=== PATIENT | female | born 1965 | race Caucasian/White ===

== ENCOUNTER 2017-09-27 13:49 | Emergency (ER) | payer SELFPAY ==
--- NOTE | 2017-09-27 17:30 | RAD ---
CHEST 2 VIEWS: Date: 09/27/17 Comparison made with the 02/09/16 study. FINDINGS: The heart size is the same and unchanged. There are no signs of vascular congestion, edema, or pleura l effusion. No lobar consolidations present. There is a little haziness in the right cardiophrenic an gle near the diaphragm, but this was present before and I am not sure it is really much different. Th e bony structures showed no acute change. IMPRESSION: No definite acute finding. POS: HOME
== END 2017-09-27 14:51 | disposition home or self-care (01) ==
LOC: BURERS 13:49
DX: S46.912A Strain of unspecified muscle, fascia and tendon at shoulder and upper arm level, left arm, initial encounter (principal); E03.9 Hypothyroidism, unspecified; E78.5 Hyperlipidemia, unspecified; I10 Essential (primary) hypertension; F17.210 Nicotine dependence, cigarettes, uncomplicated; Z79.899 Other long term (current) drug therapy; W54.8XXA Other contact with dog, initial encounter
CPT/HCPCS: 71046; 93005; 94760

== ENCOUNTER 2017-10-01 08:30 | Emergency (ER) | payer SELFPAY ==
[2017-10-01] MEDS ORDERED: Benzonatate 100 MG CAP ONE (10:09)
[2017-10-01] MEDS ORDERED: Azithromycin 250 MG TAB ONE (10:09)
--- NOTE | 2017-10-01 17:52 | RAD ---
CHEST TWO VIEWS 10/01/17 There is a new right middle infiltrate that is not seen on the 09/27 study. Pneumonia, atelectasis, or both are possible. The left lung seems clear. There are no effusions. The heart size is normal. Ther e is no vascular congestion or edema. IMPRESSION: Interval appearance of a right middle lobe infiltrate. Correlate with clinical presentation and get f ollowup studies. Code T POS: HOME
== END 2017-10-01 10:15 | disposition home or self-care (01) ==
LOC: BURERS 08:30
DX: J20.9 Acute bronchitis, unspecified (principal); E03.9 Hypothyroidism, unspecified; E78.5 Hyperlipidemia, unspecified; I10 Essential (primary) hypertension; F17.210 Nicotine dependence, cigarettes, uncomplicated; Z79.899 Other long term (current) drug therapy
CPT/HCPCS: 71046

== ENCOUNTER 2021-04-22 12:26 | Emergency (ER) | payer SELFPAY ==
[2021-04-22] MEDS ORDERED: Dexamethasone 10 MG/ML VIAL ONE (12:55)
[2021-04-22] MEDS ORDERED: Aspirin Chewable 81 MG TAB ONE (12:55)
[2021-04-22] MEDS ORDERED: cefTRIAXone\\ROCEPHIN 2 GM VIAL ONE (13:44)
[2021-04-22 13:55] LABS: #Basophils 0.1 thou/uL (0.0-0.2); #Lymphocytes 0.5 thou/uL (1.20-3.40); #Monocytes 0.7 thou/uL (0.11-0.59); #Neutrophils 8.4 thou/uL (1.40-6.50); %Basophils 0.7 % (0.0-1.0); %Monocytes 7.2 % (0.0-10.0); Hemoglobin 14.3 g/dL (12.0-16.0); Mean Corpuscular HGB CONC 34.9 g/dL (32.0-36.0); Mean Corpuscular Hemoglobin 32.2 pg (27.0-31.0); Mean Corpuscular Volume 92.2 fL (78.0-98.0); Mean Platelet Volume 6.7 fL (7.4-10.4); Platelet Count 212 thou/uL (130-400); RBC Distribution Width 13.3 % (11.5-14.5); Red Blood Cell (RBC) Count 4.44 mill/uL (4.20-5.40); White Blood Cell (WBC) Count 9.7 thou/uL (4.8-10.8)
[2021-04-22] MEDS ORDERED: Azithromycin 500 MG VIAL ONE (14:04)
[2021-04-22 14:15] LABS: ALT (SGPT) 19 U/L (8-55); AST (SGOT) 25 U/L (5-34); Albumin 4.4 g/dL (3.5-5.0); Alkaline Phosphatase 67 U/L (40-110); Anion Gap 16 mmol/L (10-20); BUN (Urea Nitrogen) 12 mg/dL (9.8-20.1); Bilirubin, Total 0.9 mg/dL (0.2-1.2); Calc. Creatinine Clearance 0 mL/min (70-130); Calcium 9.3 mg/dL (7.8-10.44); Carbon Dioxide 28 mmol/L (22-29); Chloride 96 mmol/L (98-107); Globulin 3.7 g/dL (2.4-3.5); Glucose 121 mg/dL (70-105); Potassium 3.7 mmol/L (3.5-5.1); Protein, Total 8.1 g/dL (6.0-8.3); Sodium 136 mmol/L (136-145)
[2021-04-22 15:05] LABS: SARS-CoV-2 NAA Rapid Test Not Detected (NotDetected)
[2021-04-22 15:27] LABS: Bilirubin Negative (Negative); Blood, Urine Moderate (Negative); Clarity Clear (Clear); Glucose, Urine (Dipstick) Negative (Negative); Ketone, Urine 15 mg/dL (Negative); Leukocyte Negative (Negative); Nitrite Negative (Negative); Protein, Urine (Dipstick) 100 mg/dL (Neg-Trace); Specific Gravity, Urine 1.025 (1.005-1.030); Urobilinogen 0.2 mg/dL (Less than 2)
[2021-04-22 15:33] LABS: Bacteria/HPF None Seen HPF (None Seen); RBC/HPF 0-3 HPF (0-3); Squamous Epithelial 0-3 HPF (0-3); WBC/HPF 0-3 HPF (0-3)
[2021-04-22 16:45] LABS: Lactic Acid 1.7 mmol/L (0.5-2.2)
[2021-04-22] MEDS ORDERED: Lisinopril 5 MG TAB PO SCH (21:00)
[2021-04-22] MEDS ORDERED: Atorvastatin Calcium 10 MG TAB PO SCH (21:00)
== END 2021-04-22 19:49 | disposition short-term general hospital (02) ==
LOC: BURERS 12:26
DX: J18.9 Pneumonia, unspecified organism (principal); R09.02 Hypoxemia; K02.9 Dental caries, unspecified; I51.7 Cardiomegaly; I10 Essential (primary) hypertension; E03.9 Hypothyroidism, unspecified; E78.5 Hyperlipidemia, unspecified; J44.9 Chronic obstructive pulmonary disease, unspecified; F17.210 Nicotine dependence, cigarettes, uncomplicated; Z20.822 Contact with and (suspected) exposure to COVID-19; Z79.899 Other long term (current) drug therapy
CPT/HCPCS: 36415; 71045; 80053; 81003; 81015; 83605; 83880; 84484; 85025; 85379; 87040; 87804; 93005; 96365; 96367; 96375; J0456; J0696; J1100; J7620; U0002

== ENCOUNTER 2024-09-10 20:28 | Emergency (ER) | payer OTHER ==
[2024-09-10] MEDS ORDERED: Ipratropium/Albuterol 3 ML NEB ONE (20:49)
[2024-09-10 21:06] LABS: #Basophils 0.1 thou/uL (0.0-0.2); #Eosinophils 0.1 thou/uL (0.0-0.7); #Lymphocytes 1.3 thou/uL (1.20-3.40); #Monocytes 0.5 thou/uL (0.11-0.59); #Neutrophils 4.8 thou/uL (1.40-6.50); %Basophils 0.8 % (0.0-1.0); %Eosinophils 1.4 % (0.0-10.0); %Lymphocytes 19.3 % (21.0-51.0); %Monocytes 7.8 % (0.0-10.0); %Neutrophils 70.7 % (42.0-75.0); Hemoglobin 12.8 g/dL (12.0-16.0); Mean Corpuscular HGB CONC 35.6 g/dL (32.0-36.0); Mean Corpuscular Hemoglobin 31.6 pg (27.0-31.0); Mean Corpuscular Volume 88.9 fl (78.0-98.0); Mean Platelet Volume 5.8 fL (7.4-10.4); Platelet Count 223 10x3/uL (130-400); Red Blood Cell (RBC) Count 4.06 mill/uL (4.20-5.40); White Blood Cell (WBC) Count 6.8 10x3/uL (4.8-10.8)
[2024-09-10 21:23] LABS: ALT (SGPT) 14 U/L (Less than 34); AST (SGOT) 21 U/L (11-34); Albumin 4.1 g/dL (3.1-4.5); Alkaline Phosphatase 82 U/L (40-110); Anion Gap 16 mmol/L (10-20); BUN (Urea Nitrogen) 16 mg/dL (9.8-20.1); Bilirubin, Total 0.4 mg/dL (0.3-1.2); Calc. Creatinine Clearance 0 mL/min (70-130); Calcium 9.2 mg/dL (7.8-10.44); Carbon Dioxide 26 mmol/L (22-29); Chloride 100 mmol/L (98-107); Estimated GFR 70; Glucose 142 mg/dL (70-105); Potassium 3.6 mmol/L (3.5-5.1); Protein, Total 7.1 g/dL (6.0-8.3); Sodium 138 mmol/L (136-145)
[2024-09-10 21:29] LABS: Troponin I Less than 0.010 ng/mL (< 0.028)
[2024-09-10] MEDS ORDERED: LevoFLOXacin D5W 500 mg (100 mL) BAG ONE (21:34)
[2024-09-10] MEDS ORDERED: methylPREDNISolone Sod Succ/PF 125 MG/2 ML VIAL ONE (22:35)
== END 2024-09-10 23:00 | disposition home or self-care (01) ==
LOC: BURERS 20:28
DX: J18.9 Pneumonia, unspecified organism (principal); R07.81 Pleurodynia; I10 Essential (primary) hypertension; J44.9 Chronic obstructive pulmonary disease, unspecified; F17.210 Nicotine dependence, cigarettes, uncomplicated
CPT/HCPCS: 71046; 80053; 84484; 85025; 93005; 94640; 96365; 96375; J1956; J2919; J7620